=== PATIENT | male | born 1970 | race Caucasian/White ===

== ENCOUNTER 2017-08-21 17:10 | Emergency (ER) | payer OTHER ==
[2017-08-21 17:25] VITALS: BP 163/93; PULSE 73; RESP 18; TEMP 97.8; O2SAT 98
[2017-08-21] MEDS ORDERED: CENTCHW4 CHEW (18:21)
--- NOTE | 2017-08-21 18:39 | PD ---
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 47-year- old male with history of hypertension presents for evaluation of chest pain. Symptoms started 2 weeks ago. He describes it as an intermittent left-sided squeezing chest pain which does not radiate. Pain is primarily reproduced with running night but sometimes it comes on randomly. Symptoms have been persistent which prompted evaluation today. Currently not experiencing any chest pain. He has never had this problem before. Dorsalis occasional dyspnea as well. Denies cough, congestion, sore throat, fevers, chills, abdominal pain , nausea or vomiting, diaphoresis, leg swelling. No personal or family history of coronary artery disease. Denies any known history of hyperlipidemia, diabetes. He does not currently have a primary care physician. Denies tobacco use. No other complaints. PFSH Past Medical History Diminished Hearing: No Hypertension: Yes (NO MED) Tetanus Vaccination: > 5 Years Influenza Vaccination: No Past Surgical History Surgical History: No Previous Surgery Social History Alcohol Use: No Tobacco Use: No Substance Use: No Allergies-Medications (Allergen,Severity, Reaction): Coded Allergies: No Known Allergies (Unverified , 08/21/17) Reported Meds & Prescriptions Reported Meds & Active Scripts Active Reported Centrum (Multiple Vitamins W/ Minerals) 1 Chew 1 Tab CHEW DAILY Review of Systems Except as stated in HPI: all other systems reviewed are Neg Physical Exam Narrative GENERAL: Well-developed well-nourished male in no acute distress SKIN: Warm and dry. HEAD: Atraumatic. Normocephalic. EYES: Pupils equal and round. No scleral icterus. No injection or drainage. ENT: No nasal bleeding or discharge. Mucous membranes pink and moist. NECK: Trachea midline. No JVD. CARDIOVASCULAR: Regular rate and rhythm. No murmur appreciated. RESPIRATORY: No accessory muscle use. Clear to auscultation. Breath sounds equal bilaterally. GASTROINTESTINAL: Abdomen soft, non-tender, nondistended. Hepatic and splenic margins not palpable. MUSCULOSKELETAL: No obvious deformities. No clubbing. No cyanosis. No edema. NEUROLOGICAL: Awake and alert. No obvious cranial nerve deficits. Motor grossly within normal limits. Normal speech. PSYCHIATRIC: Appropriate mood and affect; insight and judgment normal. Data Data Last Documented VS Vital Signs Date Time Temp Pulse Resp B/P (MAP) Pulse Ox O2 Delivery O2 Flow Rate FiO2 08/21/17 18:47 98 Room Air 08/21/17 18:47 59 16 144/97 (113) 136/92 (107) 08/21/17 17:25 97.8 Orders Orders Electrocardiogram (08/21/17 18:35) Basic Metabolic Panel (Bmp) (08/21/17 18:35) Ckmb (Isoenzyme) Profile (08/21/17 18:35) Complete Blood Count With Diff (08/21/17 18:35) Magnesium (Mg) (08/21/17 18:35) Prothrombin Time / Inr (Pt) (08/21/17 18:35) Act Partial Throm Time (Ptt) (08/21/17 18:35) Troponin I (08/21/17 18:35) Chest, Single Ap (08/21/17 18:35) Ecg Monitoring (08/21/17 18:35) Bilateral Bp Monitoring (08/21/17 18:35) Iv Access Insert/Monitor (08/21/17 18:35) Oximetry (08/21/17 18:35) Oxygen Administration (08/21/17 18:35) Aspirin Chew (Aspirin Chew) (08/21/17 18:45) Sodium Chloride 0.9% Flush (Ns Flush) (08/21/17 18:45) CKMB (08/21/17 20:00) CKMB% (08/21/17 20:00) Labs Laboratory Tests Test 08/21/17 18:40 08/21/17 20:00 White Blood Count 7.4 TH/MM3 Red Blood Count 4.99 MIL/MM3 Hemoglobin 15.6 GM/DL Hematocrit 45.4 % Mean Corpuscular Volume 90.9 FL Mean Corpuscular Hemoglobin 31.2 PG Mean Corpuscular Hemoglobin Concent 34.3 % Red Cell Distribution Width 12.6 % Platelet Count 304 TH/MM3 Mean Platelet Volume 7.6 FL Neutrophils (%) (Auto) 50.5 % Lymphocytes (%) (Auto) 36.4 % Monocytes (%) (Auto) 7.8 % Eosinophils (%) (Auto) 4.3 % Basophils (%) (Auto) 1.0 % Neutrophils # (Auto) 3.7 TH/MM3 Lymphocytes # (Auto) 2.7 TH/MM3 Monocytes # (Auto) 0.6 TH/MM3 Eosinophils # (Auto) 0.3 TH/MM3 Basophils # (Auto) 0.1 TH/MM3 CBC Comment DIFF FINAL Differential Comment Blood Urea Nitrogen 12 MG/DL Creatinine 0.78 MG/DL Random Glucose 81 MG/DL Calcium Level 8.7 MG/DL Magnesium Level 2.4 MG/DL Sodium Level 140 MEQ/L Potassium Level 3.7 MEQ/L Chloride Level 108 MEQ/L Carbon Dioxide Level 27.8 MEQ/L Anion Gap 4 MEQ/L Estimat Glomerular Filtration Rate 106 ML/MIN Total Creatine Kinase 154 U/L Troponin I LESS THAN 0.02 NG/ML MDM Medical Decision Making Medical Screen Exam Complete: Yes Emergency Medical Condition: Yes Medical Record Reviewed: Yes Differential Diagnosis Angina, unstable angina, acute coronary syndrome, aortic dissection, pleurisy, costochondritis, pericarditis, myocarditis, spontaneous pneumothorax Narrative Course 47-year-old male with history of hypertension who has been expressing intermittent exertional left-sided chest pain for 2 weeks. The patient was placed on ECG monitored pulse oximetry. A 12-lead EKG was obtained revealing sinus rhythm with no acute ST elevation or depression or T-wave inversions. Plan is for lab work, chest x-ray. The patient was given a full dose aspirin. Initial lab work and imaging studies are reassuring. Initial cardiac enzymes are negative. Given his symptoms, it was recommended that he be admitted of the chest pain center for serial cardiac enzymes and rule out purposes however he is declining. He is leaving AMA. I discussed in great detail the purpose of these tests and the risks of leaving AMA and he verbalizes understanding. He understands that he can return at any time if he changes his mind and otherwise follow-up as soon as possible with primary care physician. AMA: The risks of leaving against medical advice without further evaluation treatment were discussed with the patient. These risks include cardiac dysfunction, cardiac dysrhythmia, possible heart attack, possible . The patient indicated understanding of these risks and appeared to have the capacity to make this decision. Procedures EKG Prior to Arrival: Yes Diagnosis Primary Impression: Chest pain Additional Impression: Left against medical advice Med/Other Pt SpecificInfo: No Change to Meds Disposition: 07 AGAINST MEDICAL ADVICE Condition: Stable Perico Borden Aug 21, 2017 18:39
[2017-08-21] MEDS ORDERED: SODIUM CHLORIDE 0.9% FLUSH 10 ML FLUSH IVF PRN (18:45)
[2017-08-21] MEDS ORDERED: ASPIRIN 81 MG CHEW TAB PO ONE (18:45)
[2017-08-21 18:47] VITALS: BP_SYST 136; BP_SYST 144; BP_DIAS 92; BP_DIAS 97; PULSE 59; RESP 16; O2SAT 98
[2017-08-21 18:55] LABS: AUTOMATED NEUTROPHIL # 3.7 TH/MM3 (1.8-7.7); BASOPHIL # 0.1 TH/MM3 (0-0.2); EOSINOPHIL # 0.3 TH/MM3 (0-0.4); EOSINOPHIL % 4.3 % (0.0-4.0); HEMATOCRIT 45.4 % (39.0-51.0); HEMOGLOBIN 15.6 GM/DL (13.0-17.0); LYMPH % 36.4 % (9.0-44.0); LYMPHOCYTE # 2.7 TH/MM3 (1.0-4.8); MEAN CELL VOLUME 90.9 FL (80.0-100.0); MEAN CORPUSCULAR HEMOGLOBIN 31.2 PG (27.0-34.0); MEAN CORPUSCULAR HGB CONC 34.3 % (32.0-36.0); MEAN PLATELET VOLUME 7.6 FL (7.0-11.0); MONO % 7.8 % (0.0-8.0); MONOCYTE # 0.6 TH/MM3 (0-0.9); NEUT % 50.5 % (16.0-70.0); PLATELET COUNT 304 TH/MM3 (150-450); RED BLOOD COUNT 4.99 MIL/MM3 (4.50-5.90); RED CELL DISTRIBUTION WIDTH 12.6 % (11.6-17.2); WHITE BLOOD COUNT 7.4 TH/MM3 (4.0-11.0)
--- NOTE | 2017-08-21 19:15 | RADRPT ---
EXAM DATE/TIME: 08/21/2017 19:01 [facility] COMPARISON: No previous studies available for comparison. INDICATIONS : Cough for 1 week. MEDICAL HISTORY : None. SURGICAL HISTORY : None. ENCOUNTER: Initial ACUITY: 1 week PAIN SCORE: 2/10 LOCATION: Bilateral chest FINDINGS: A single view of the chest demonstrates the lungs to be symmetrically aerated without evidence of mas s, infiltrate or effusion. The cardiomediastinal contours are unremarkable. Osseous structures are intact. CONCLUSION: No acute disease. Vaughn Berry MD on August 21, 2017 at 19:12 Board Certified Radiologist. This report was verified electronically.
[2017-08-21 20:19] LABS: CHLORIDE 108 MEQ/L (98-107); SODIUM (NA) 140 MEQ/L (136-145)
[2017-08-21 20:22] LABS: CALCIUM 8.7 MG/DL (8.5-10.1)
[2017-08-21 20:23] LABS: BICARBONATE 27.8 MEQ/L (21.0-32.0); BLOOD UREA NITROGEN 12 MG/DL (7-18); GLUCOSE,RANDOM 81 MG/DL (74-106); MAGNESIUM 2.4 MG/DL (1.5-2.5)
[2017-08-21 20:26] LABS: CREATININE 0.78 MG/DL (0.60-1.30); GLOMERULAR FILTRATION RATE 106 ML/MIN (>89)
[2017-08-21 20:31] LABS: TROPONIN I LESS THAN 0.02 NG/ML (0.02-0.05)
--- NOTE | 2017-08-22 09:29 | EKG ---
Date Performed: 08/21/2017 Time Performed: 17:31:06 PTAGE: 47 years EKG: Sinus rhythm EARLY REPOLARIZATION BORDERLINE ECG INTERPRETATION BASED ON A DEFAULT AGE OF 39 YEARS NO PREVIOUS TRACING DOCTOR: Rah Saunders Interpretating Date/Time 08/22/2017 09:27:04
== END 2017-08-21 20:58 | disposition left against medical advice (07) ==
LOC: PHED 17:10
DX: R07.9 Chest pain, unspecified (principal); I10 Essential (primary) hypertension
CPT/HCPCS: 71045; 80048; 82550; 82552; 83735; 84484; 85025; 85610; 85730; 93005; 99285

== ENCOUNTER 2017-09-07 16:49 | Observation (INO) | payer OTHER ==
[~2017-09-07 16:49] MED LIST: CENTCHW4 CHEW
[2017-09-07] MEDS ORDERED: IOHEXOL 350 MG/ML 10 ML VIAL (for RAD DIAG) IVCONTRAST ONE (16:50)
[2017-09-07 17:08] VITALS: BP 163/101; PULSE 76; RESP 16; O2SAT 98
[2017-09-07 17:26] LABS: AUTOMATED NEUTROPHIL # 4.7 TH/MM3 (1.8-7.7); BASOPHIL # 0.1 TH/MM3 (0-0.2); BASOPHIL % 0.8 % (0.0-2.0); EOSINOPHIL # 0.4 TH/MM3 (0-0.4); EOSINOPHIL % 4.1 % (0.0-4.0); HEMATOCRIT 46.6 % (39.0-51.0); HEMOGLOBIN 16.5 GM/DL (13.0-17.0); LYMPH % 37.4 % (9.0-44.0); LYMPHOCYTE # 3.5 TH/MM3 (1.0-4.8); MEAN CELL VOLUME 92.5 FL (80.0-100.0); MEAN CORPUSCULAR HEMOGLOBIN 32.7 PG (27.0-34.0); MEAN CORPUSCULAR HGB CONC 35.3 % (32.0-36.0); MEAN PLATELET VOLUME 7.6 FL (7.0-11.0); MONO % 7.7 % (0.0-8.0); MONOCYTE # 0.7 TH/MM3 (0-0.9); PLATELET COUNT 296 TH/MM3 (150-450); RED BLOOD COUNT 5.03 MIL/MM3 (4.50-5.90); RED CELL DISTRIBUTION WIDTH 12.3 % (11.6-17.2); WHITE BLOOD COUNT 9.4 TH/MM3 (4.0-11.0)
--- NOTE | 2017-09-07 17:35 | PD ---
HPI Chief Complaint: Pain: Acute or Chronic Time Seen by Provider: 17:08 Travel History International Travel<30 days: No Contact w/Intl Traveler<30days: No Traveled to known affect area: No History of Present Illness HPI 47-year-old male arrives to the ER with complaint of shortness of breath and chest pain for the past month. Today he developed dizziness, vertiginous in nature associated with difficulty concentrating. No weakness aphasia or ataxia reported. It started spontaneously. Of note the patient is Lithuanian speaking and translation was provided through our online service. The patient reports the chest pain is not pleuritic or exertional. It has a sharp quality. There is no radiation. Severity is 3-4/10. No cough or fever reported no similar prior episodes reported however review the records show that he was seen here about a month ago for chest pain left and AMA without undergoing chest pain center evaluation. He has no past medical history. He is not a smoker. He has no family history of coronary disease that he is aware of. PFSH Past Medical History Diminished Hearing: No Hypertension: Yes (NO MED) Tetanus Vaccination: Unknown Influenza Vaccination: No Past Surgical History Surgical History: No Previous Surgery Social History Alcohol Use: No Tobacco Use: No Substance Use: No Allergies-Medications (Allergen,Severity, Reaction): Coded Allergies: No Known Allergies (Unverified , 09/07/17) Reported Meds & Prescriptions Reported Meds & Active Scripts Active Reported Centrum (Multiple Vitamins W/ Minerals) 1 Chew 1 Tab CHEW DAILY Review of Systems Except as stated in HPI: all other systems reviewed are Neg General / Constitutional: No: Fever Physical Exam Narrative GENERAL: 47-year-old male pleasant no acute distress SKIN: Warm and dry. HEAD: Atraumatic. Normocephalic. EYES: Pupils equal and round. No scleral icterus. No injection or drainage. No nystagmus. ENT: No nasal bleeding or discharge. Mucous membranes pink and moist. NECK: Trachea midline. No JVD. CARDIOVASCULAR: Regular rate and rhythm. RESPIRATORY: No accessory muscle use. Clear to auscultation. Breath sounds equal bilaterally. GASTROINTESTINAL: Abdomen soft, non-tender, nondistended. Hepatic and splenic margins not palpable. MUSCULOSKELETAL: Extremities without clubbing, cyanosis, or edema. No obvious deformities. NEUROLOGICAL: Speech memory mentation are normal. The cranial nerves III through XII are normal. Cerebellar function is normal. Motor function is normal 4 extremities. PSYCHIATRIC: Appropriate mood and affect; insight and judgment normal. Data Data Last Documented VS Vital Signs Date Time Temp Pulse Resp B/P (MAP) Pulse Ox O2 Delivery O2 Flow Rate FiO2 09/07/17 18:37 66 16 141/99 (113) 97 Nasal Cannula 2.00 Orders Orders Electrocardiogram (09/07/17 16:57) Complete Blood Count With Diff (09/07/17 16:57) Basic Metabolic Panel (Bmp) (09/07/17 16:57) Ckmb (Isoenzyme) Profile (09/07/17 16:57) Troponin I (09/07/17 16:57) Chest, Single Ap (09/07/17 16:57) Iv Access Insert/Monitor (09/07/17 16:57) Ecg Monitoring (09/07/17 16:57) Oxygen Administration (09/07/17 16:57) Oximetry (09/07/17 16:57) Ct Pulmonary Angiogram (09/07/17 17:08) CKMB (09/07/17 17:00) CKMB% (09/07/17 17:00) Meclizine (Antivert) (09/07/17 19:00) Sodium Chlor 0.9% 1000 Ml Inj (Ns 1000 M (09/07/17 18:52) Iohexol 350 Inj (Omnipaque 350 Inj) (09/07/17 16:50) Labs Laboratory Tests Test 09/07/17 17:00 White Blood Count 9.4 TH/MM3 Red Blood Count 5.03 MIL/MM3 Hemoglobin 16.5 GM/DL Hematocrit 46.6 % Mean Corpuscular Volume 92.5 FL Mean Corpuscular Hemoglobin 32.7 PG Mean Corpuscular Hemoglobin Concent 35.3 % Red Cell Distribution Width 12.3 % Platelet Count 296 TH/MM3 Mean Platelet Volume 7.6 FL Neutrophils (%) (Auto) 50.0 % Lymphocytes (%) (Auto) 37.4 % Monocytes (%) (Auto) 7.7 % Eosinophils (%) (Auto) 4.1 % Basophils (%) (Auto) 0.8 % Neutrophils # (Auto) 4.7 TH/MM3 Lymphocytes # (Auto) 3.5 TH/MM3 Monocytes # (Auto) 0.7 TH/MM3 Eosinophils # (Auto) 0.4 TH/MM3 Basophils # (Auto) 0.1 TH/MM3 CBC Comment DIFF FINAL Differential Comment Blood Urea Nitrogen 10 MG/DL Creatinine 0.89 MG/DL Random Glucose 84 MG/DL Calcium Level 8.5 MG/DL Sodium Level 137 MEQ/L Potassium Level 4.4 MEQ/L Chloride Level 105 MEQ/L Carbon Dioxide Level 25.4 MEQ/L Anion Gap 7 MEQ/L Estimat Glomerular Filtration Rate 91 ML/MIN Total Creatine Kinase 201 U/L Creatine Kinase MB 1.1 NG/ML Troponin I LESS THAN 0.02 NG/ML MDM Medical Decision Making Medical Screen Exam Complete: Yes Emergency Medical Condition: Yes Medical Record Reviewed: Yes Differential Diagnosis NSTEMI, unstable angina, coronary vasospasm, PE, PTX, aortic dissection, pericarditis, myocarditis, endocarditis, PNA, esophageal disease, aneurysm, musculoskeletal etiologies, anxiety, cocaine/sympathomimetic abuse Narrative Course EKG shows sinus rhythm with a rate of 67 and no ischemic injury pattern CBC & BMP Diagram 09/07/17 17:00 Calcium Level 8.5 Last Impressions Chest X-Ray 09/07/17 1657 Signed Impressions: Service Date/Time: Thursday, September 07, 2017 17:18 - CONCLUSION: No acute cardiopulmonary process. MD Triston Garcia Daniel C. MD Sep 07, 2017 17:35
[2017-09-07 17:38] LABS: CHLORIDE 105 MEQ/L (98-107); SODIUM (NA) 137 MEQ/L (136-145)
[2017-09-07 17:41] LABS: CALCIUM 8.5 MG/DL (8.5-10.1)
[2017-09-07 17:42] LABS: BICARBONATE 25.4 MEQ/L (21.0-32.0); BLOOD UREA NITROGEN 10 MG/DL (7-18); GLUCOSE,RANDOM 84 MG/DL (74-106)
--- NOTE | 2017-09-07 17:43 | RADRPT ---
EXAM DATE/TIME: 09/07/2017 17:18 [facility] COMPARISON: CHEST SINGLE AP, August 21, 2017, 19:01. INDICATIONS : Chest pain. MEDICAL HISTORY : None. SURGICAL HISTORY : None. ENCOUNTER: Initial ACUITY: 1 day PAIN SCORE: 3/10 LOCATION: Bilateral chest FINDINGS: A single view of the chest demonstrates the lungs to be symmetrically aerated without evidence of mas s, infiltrate or effusion. The cardiomediastinal contours are unremarkable. Osseous structures are intact. CONCLUSION: No acute cardiopulmonary process. Demar Alexander MD on September 07, 2017 at 17:40 Board Certified Radiologist. This report was verified electronically.
[2017-09-07 17:45] LABS: CREATININE 0.89 MG/DL (0.60-1.30); GLOMERULAR FILTRATION RATE 91 ML/MIN (>89)
[2017-09-07 17:50] LABS: TROPONIN I LESS THAN 0.02 NG/ML (0.02-0.05)
[2017-09-07 18:37] VITALS: BP 141/99; PULSE 66; RESP 16; O2SAT 97
[2017-09-07] MEDS ORDERED: SODIUM CHLOR 0.9% 1000 ML INJ 1,000 ML IV ONE (18:52)
[2017-09-07] MEDS ORDERED: MECLIZINE HCL 25 MG TAB PO ONE (19:00)
--- NOTE | 2017-09-07 19:33 | RADRPT ---
EXAM DATE/TIME: 09/07/2017 18:54 [facility] COMPARISON: No previous studies available for comparison. INDICATIONS : Chest pain. IV CONTRAST: 75 cc Omnipaque 350 (iohexol) IV RADIATION DOSE: 6.69 CTDIvol (mGy) MEDICAL HISTORY : Hypertension. SURGICAL HISTORY : None. ENCOUNTER: Initial ACUITY: 1 day PAIN SCALE: 6/10 LOCATION: Bilateral chest TECHNIQUE: Volumetric scanning of the chest was performed using a pulmonary embolism protocol MIP images were re constructed. Using automated exposure control and adjustment of the mA and/or kV according to patien t size, radiation dose was kept as low as reasonably achievable to obtain optimal diagnostic quality images. DICOM format image data is available electronically for review and comparison. Follow-up recommendations for detected pulmonary nodules are based at a minimum on nodule size and pa tient risk factors according to Fleischner Society Guidelines. FINDINGS: PULMONARY ARTERIES: No filling defects are seen in the pulmonary arteries through the segmental level. LUNGS: There is no consolidation or pneumothorax . No concerning pulmonary nodule is visualized. PLEURAE: There is no pleural thickening or pleural effusion. MEDIASTINUM: There is good visualization of the great vessels of the middle mediastinum. No evidence of mediastin al or hilar adenopathy/mass. MUSCULOSKELETAL: Within normal limits for patient age. MISCELLANEOUS: The visualized upper abdominal organs demonstrate no acute abnormality. CONCLUSION: 1. Negative for pulmonary embolus. Minimal dependent atelectasis in the lungs. Bony Colorado MD on September 07, 2017 at 19:30 Board Certified Radiologist. This report was verified electronically.
--- NOTE | 2017-09-07 20:01 | PD ---
Physical Exam Time Seen by Provider: 19:[address] Goldstein with this patient with me to check the results of the CT angiogram and make a disposition, likely chest pain center. Data Data Last Documented VS Vital Signs Date Time Temp Pulse Resp B/P (MAP) Pulse Ox O2 Delivery O2 Flow Rate FiO2 09/07/17 18:37 66 16 141/99 (113) 97 Nasal Cannula 2.00 Orders Orders Electrocardiogram (09/07/17 16:57) Complete Blood Count With Diff (09/07/17 16:57) Basic Metabolic Panel (Bmp) (09/07/17 16:57) Ckmb (Isoenzyme) Profile (09/07/17 16:57) Troponin I (09/07/17 16:57) Chest, Single Ap (09/07/17 16:57) Iv Access Insert/Monitor (09/07/17 16:57) Ecg Monitoring (09/07/17 16:57) Oxygen Administration (09/07/17 16:57) Oximetry (09/07/17 16:57) Ct Pulmonary Angiogram (09/07/17 17:08) CKMB (09/07/17 17:00) CKMB% (09/07/17 17:00) Meclizine (Antivert) (09/07/17 19:00) Sodium Chlor 0.9% 1000 Ml Inj (Ns 1000 M (09/07/17 18:52) Iohexol 350 Inj (Omnipaque 350 Inj) (09/07/17 16:50) Activity Bed Rest With Brp (09/07/17 20:17) Vital Signs (Adult) Q4H (09/07/17 20:17) Cardiac Rhythm .As Directed (09/07/17 20:17) Notify Dr: Other .PRN (09/07/17 20:17) Notify Dr. Parameters (09/07/17 20:17) Resp Oxygen Nasal Cannula (09/07/17 ) Diet Heart Healthy (09/08/17 Breakfast) Ckmb (Isoenzyme) Profile (09/07/17 20:17) Ckmb (Isoenzyme) Profile (09/07/17 23:17) Troponin I (09/07/17 20:17) Troponin I (09/07/17 23:17) Electrocardiogram (09/07/17 20:17) Electrocardiogram (09/07/17 23:17) ^ Obtain (09/07/17 20:17) Sodium Chloride 0.9% Flush (Ns Flush) (09/07/17 20:30) Sodium Chloride 0.9% Flush (Ns Flush) (09/07/17 21:00) Acetaminophen (Tylenol) (09/07/17 20:30) Temazepam (Restoril) (09/07/17 20:30) Development Executive / Telemetry BREANN.Q8H (09/07/17 20:17) Labs Laboratory Tests Test 09/07/17 17:00 White Blood Count 9.4 TH/MM3 Red Blood Count 5.03 MIL/MM3 Hemoglobin 16.5 GM/DL Hematocrit 46.6 % Mean Corpuscular Volume 92.5 FL Mean Corpuscular Hemoglobin 32.7 PG Mean Corpuscular Hemoglobin Concent 35.3 % Red Cell Distribution Width 12.3 % Platelet Count 296 TH/MM3 Mean Platelet Volume 7.6 FL Neutrophils (%) (Auto) 50.0 % Lymphocytes (%) (Auto) 37.4 % Monocytes (%) (Auto) 7.7 % Eosinophils (%) (Auto) 4.1 % Basophils (%) (Auto) 0.8 % Neutrophils # (Auto) 4.7 TH/MM3 Lymphocytes # (Auto) 3.5 TH/MM3 Monocytes # (Auto) 0.7 TH/MM3 Eosinophils # (Auto) 0.4 TH/MM3 Basophils # (Auto) 0.1 TH/MM3 CBC Comment DIFF FINAL Differential Comment Blood Urea Nitrogen 10 MG/DL Creatinine 0.89 MG/DL Random Glucose 84 MG/DL Calcium Level 8.5 MG/DL Sodium Level 137 MEQ/L Potassium Level 4.4 MEQ/L Chloride Level 105 MEQ/L Carbon Dioxide Level 25.4 MEQ/L Anion Gap 7 MEQ/L Estimat Glomerular Filtration Rate 91 ML/MIN Total Creatine Kinase 201 U/L Creatine Kinase MB 1.1 NG/ML Troponin I LESS THAN 0.02 NG/ML [facility] Medical Record Reviewed: Yes Supervised Visit with TRIXIE: Yes Interpretation(s) The EKG is normal with normal sinus rhythm rate of 67. The CT pulmonary angiogram is negative for pulmonary embolus. The CBC is normal. The cardiac enzymes are normal and the basic metabolic profile is normal. Differential Diagnosis Chest pain etiology undetermined, acute coronary syndrome-unlikely, esophageal pain, chest wall pain, pleuritic pain, gastrointestinal pain, musculoskeletal pain, pulmonary embolus Narrative Course The patient has no evidence for any of the more serious causes of chest pain as listed above. He will be admitted to the chest pain center. He has never had a stress test. Physician Communication Physician Communication I discussed the patient with Dr. Parmar. Diagnosis Primary Impression: Chest pain of unknown etiology Admitting Information Admitting Physician Requests: Observation Jose Fletcher MD Sep 07, 2017 20:01
[2017-09-07] MEDS ORDERED: SODIUM CHLORIDE 0.9% FLUSH 10 ML FLUSH IV FLUSH PRN (20:30)
[2017-09-07] MEDS ORDERED: TEMAZEPAM 15 MG CAP PO PRN (20:30)
[2017-09-07] MEDS ORDERED: ACETAMINOPHEN 500 MG CPLT PO PRN (20:30)
[2017-09-07 22:06] VITALS: BP 141/93; PULSE 71; RESP 14; O2SAT 100
[2017-09-07 22:06] LABS: TROPONIN I LESS THAN 0.02 NG/ML (0.02-0.05)
[2017-09-07 22:26] VITALS: PULSE 64
[2017-09-07 22:59] VITALS: BP 141/93; PULSE 71; RESP 14; TEMP 98; O2SAT 100
[2017-09-07] MEDS: SODIUM CHLORIDE 0.9% FLUSH 10 ML FLUSH IV FLUSH SCH (23:03)
[2017-09-07 23:10] VITALS: O2SAT 99
[2017-09-08 00:10] LABS: TROPONIN I LESS THAN 0.02 NG/ML (0.02-0.05)
[2017-09-08 01:32] VITALS: BP 132/80; PULSE 58; RESP 16; TEMP 97.4; O2SAT 100
[2017-09-08 05:16] VITALS: BP 112/72; PULSE 76; RESP 16; TEMP 97.9; O2SAT 98
[2017-09-08 08:00] VITALS: BP 119/69; PULSE 64; RESP 16; TEMP 98.3; O2SAT 98
[2017-09-08 08:10] VITALS: O2SAT 99
--- NOTE | 2017-09-08 09:41 | HHI.HP ---
[facility] Primary [facility]ician No Primary Care Physician Admission Diagnosis chest pain unknown etiology Diagnoses: (1) Chest pain of unknown etiology Diagnosis: Principal Chief Complaint: Chest pain Travel History International Travel<30 Days: No Contact w/Intl Traveler <30 Da: No Traveled to Known Affected Are: No History of Present Illness 47-year-old male with history of untreated hypertension who presented to hospital because of chest discomfort. Patient does not speak much Welsh, translation was performed by son at bedside. Patient states that over the last 2 months he has been having intermittent chest discomfort approximately 1 time per month whenever he exerts himself, strenuous walking. He states that the pain is on the left side of his chest without any radiation to neck, back, shoulder, arm. It is associated with shortness of breath, lightheadedness, diaphoresis, dizziness. Denies any nausea, vomiting. He indicates that the pain is a crescendo type pain that usually last for proximal 1 minute and is a 4 /10 on a pain scale. Patient had previous workup done in emergency department on August 21, 2017, at that time he left out AGAINST MEDICAL ADVICE. Patient be presented to the ER with the chest pain again and is recommended patient be observed and chest pain center for further recommendations and management. Review of Systems Constitutional: COMPLAINS OF: Dizziness Respiratory: COMPLAINS OF: Shortness of breath Cardiovascular: COMPLAINS OF: Chest pain Except as stated in HPI: all other systems reviewed are Neg Past Family Social History Past Medical History Elevated blood pressure Past Surgical History No previous surgeries Reported Medications Reported Meds & Active Scripts Active Reported Centrum (Multiple Vitamins W/ Minerals) 1 Chew 1 Tab CHEW DAILY Allergies: Coded Allergies: No Known Allergies (Unverified , 09/07/17) Family History Reviewed is significant for mother with breast cancer, there is no indication of any heart disease, diabetes, seizures, stroke Social History Patient does drink alcohol approximately one time a week. He denies any tobacco or illicit drug Physical Exam Vital Signs Vital Signs Date Time Temp Pulse Resp B/P (MAP) Pulse Ox O2 Delivery O2 Flow Rate FiO2 09/08/17 08:10 99 Nasal Cannula 2.00 09/08/17 08:00 98.3 64 16 119/69 (86) 98 09/08/17 05:16 97.9 76 16 112/72 (85) 98 09/08/17 01:32 97.4 58 16 132/80 (97) 100 09/07/17 23:10 99 Nasal Cannula 2.00 09/07/17 22:59 98.0 71 14 141/93 (109) 100 09/07/17 22:26 64 09/07/17 22:06 71 14 141/93 (109) 100 Room Air 09/07/17 18:37 66 16 141/99 (113) 97 Nasal Cannula 2.00 09/07/17 17:10 Nasal Cannula 2.00 09/07/17 17:08 76 16 163/101 (121) 98 Physical Exam GENERAL: Well-developed, well-nourished, in no acute distress. alert and orientated HEENT: Head is normocephalic without any lesions or masses noted. Facial features are symmetric. Eyes: Pupils equal round reactive to light. Extraocular muscles are intact. Conjunctivae were clear. Oropharyngeal: Pharynx without any erythema edema. Tongue is midline without deviation. Buccal mucosa is moist without any masses or lesions NECK: Supple without any masses. Trachea midline no deviation. No JVD, no bruits are appreciated CARDIAC: Regular rhythm, regular rate. S1/S2 are heard. No murmurs gallops or rubs. LUNGS: Clear to auscultation bilaterally. No wheeze, rhonchi or rales. No use of accessory muscles on inspiration or expiration. ABDOMEN: Soft, nontender. Nondistended. Bowel sounds heard in all 4 quadrants. No organomegaly or masses. Negative rebound, negative guarding EXTREMITIES: No edema, pulses are equal bilaterally. No cyanosis or clubbing NEUROLOGY: Mood and affect appear appropriate. Cranial nerves II through XII grossly intact. Muscle strength 5/5 in upper and lower extremities bilaterally. Deep tendon reflexes are 2+ in upper and lower extremities bilaterally. Laboratory Laboratory Tests Test 09/07/17 17:00 09/07/17 21:38 09/07/17 23:38 White Blood Count 9.4 Red Blood Count 5.03 Hemoglobin 16.5 Hematocrit 46.6 Mean Corpuscular Volume 92.5 Mean Corpuscular Hemoglobin 32.7 Mean Corpuscular Hemoglobin Concent 35.3 Red Cell Distribution Width 12.3 Platelet Count 296 Mean Platelet Volume 7.6 Neutrophils (%) (Auto) 50.0 Lymphocytes (%) (Auto) 37.4 Monocytes (%) (Auto) 7.7 Eosinophils (%) (Auto) 4.1 Basophils (%) (Auto) 0.8 Neutrophils # (Auto) 4.7 Lymphocytes # (Auto) 3.5 Monocytes # (Auto) 0.7 Eosinophils # (Auto) 0.4 Basophils # (Auto) 0.1 CBC Comment DIFF FINAL Differential Comment Blood Urea Nitrogen 10 Creatinine 0.89 Random Glucose 84 Calcium Level 8.5 Sodium Level 137 Potassium Level 4.4 Chloride Level 105 Carbon Dioxide Level 25.4 Anion Gap 7 Estimat Glomerular Filtration Rate 91 Total Creatine Kinase 201 142 124 Creatine Kinase MB 1.1 0.9 Troponin I LESS THAN 0.02 LESS THAN 0.02 LESS THAN 0.02 Result Diagram: 09/07/17 17009/07/[address] Angiography 09/07/[id number] Signed Impressions: Service Date/Time: Thursday, September 07, 2017 18:54 - CONCLUSION: 1. Negative for pulmonary embolus. Minimal dependent atelectasis in the lungs. Bony Colorado MD Chest X-Ray [id number]/07/[id number] Signed Impressions: Service Date/Time: Thursday, September 07, 2017 17:18 - CONCLUSION: No acute cardiopulmonary process. MD Lara Garcia VTE Risk Assessment Caprini VTE Risk Assessment: No/Low Risk (score <= 1) Caprini Risk Assessment Model Point Value = 1 Point Value = 2 Point Value = 3 Point Value = 5 Age 41-60 Minor surgery BMI > 25 kg/m2 Swollen legs Varicose veins or History of unexplained or recurrent spontaneous Oral contraceptives or hormone replacement Sepsis (< 1 month) Serious lung disease, including pneumonia (< 1 month) Abnormal pulmonary function Acute myocardial infarction Congestive heart failure (< 1 month) History of inflammatory bowel disease Medical patient at bed rest Age 61-74 Arthroscopic surgery Major open surgery (> 45 min) Laparoscopic surgery (> 45 min) Malignancy Confined to bed (> 72 hours) Immobilizing plaster cast Central venous access Age >= 75 History of VTE Family history of VTE Factor V Leiden Prothrombin [id number] Lupus anticoagulant Anticardiolipin antibodies Elevated serum homocysteine Heparin-induced thrombocytopenia Other congenital or acquired thrombophilia Stroke (< 1 month) Elective arthroplasty Hip, pelvis, or leg fracture Acute spinal cord injury (< 1 month) Prophylaxis Regimen Total Risk Factor Score Risk Level Prophylaxis Regimen 0-1 Low Early ambulation 2 Moderate Order ONE of the following: *Sequential Compression Device (SCD) *Heparin 5000 units SQ BID 3-4 Higher Order ONE of the following medications: *Heparin 5000 units SQ TID *Enoxaparin/Lovenox 40 mg SQ daily (WT < 150 kg, CrCl > 30 mL/min) *Enoxaparin/Lovenox 30 mg SQ daily (WT < 150 kg, CrCl > 10-29 mL/min) *Enoxaparin/Lovenox 30 mg SQ BID (WT < 150 kg, CrCl > 30 mL/min) AND/OR *Sequential Compression Device (SCD) 5 or more Highest Order ONE of the following medications: *Heparin 5000 units SQ TID (Preferred with Epidurals) *Enoxaparin/Lovenox 40 mg SQ daily (WT < 150 kg, CrCl > 30 mL/min) *Enoxaparin/Lovenox 30 mg SQ daily (WT < 150 kg, CrCl > 10-29 mL/min) *Enoxaparin/Lovenox 30 mg SQ BID (WT < 150 kg, CrCl > 30 mL/min) AND *Sequential Compression Device (SCD) Assessment and Plan Assessment and Plan Chest pain, Patient is without any significant risk factors, however patient was expressing chest pain with exercise, shortness of breath, dizziness, lightheadedness. Serial cardiac enzymes were performed which were negative and ruled out any acute coronary event Serial EKGs were performed and reviewed by myself which does not indicate any changes or acute abnormality Exercise stress test was performed which did not indicate any underlying ischemia Elevated blood pressure Blood pressure is improved at this time Recommended outpatient follow-up and management by primary medical doctor DVT prevention Low risk, early ambulation Discharge disposition Discharge home in stable condition Activity: Ad samir. Diet: Regular diet Medications per medication reconciliation Follow-up primary medical doctor in one week Discussed Condition With Nursing staff, Dr. Dang, patient, kady FletcherLuiz Sep 08, 2017 09:41
[2017-09-08] MEDS: SODIUM CHLORIDE 0.9% FLUSH 10 ML FLUSH IV FLUSH SCH (11:02)
[2017-09-08 12:00] VITALS: BP 135/77; PULSE 89; RESP 18; TEMP 97.6; O2SAT 97
--- NOTE | 2017-09-08 12:01 | HHI.DCPOC ---
Discharge Care Plan Diagnosis: (1) Chest pain of unknown etiology Goals to Promote Your Health * To prevent worsening of your condition and complications * To maintain your health at the optimal level Directions to Meet Your Goals Take your medications as prescribed Follow your dietary instruction Follow activity as directed Keep your appointments as scheduled Take your immunizations and boosters as scheduled If your symptoms worsen call your PCP, if no PCP go to Urgent Care Center or Emergency Room Smoking is Dangerous to Your Health. Avoid second hand smoke Call the 24-hour hour crisis hotline for domestic abuse at Luiz Fletcher Sep 08, 2017 12:01
--- NOTE | 2017-09-08 14:27 | TR ---
Date Performed: 09/08/2017 Time Performed: 11:25:12 DOCTOR: Lorenzo Townsend DRUG LIST: CLINICAL HISTORY: CHEST PAIN REASON FOR TEST: ETT REASON FOR ENDING: Completed Protocol OBSERVATION: Arrhythmia: None Chest Pain: None CONCLUSION: Patient tolerated KAREN protocol with Total Exercise Time=7:13 Maximum ON=403 % Max HR Achieved=93.0% Maximum XF=298/82. Patient was asymptomatic troughout entire test, Testing stopped secondary to goals acheived. Patient reached Target HR. During peak exercise, patient had quick upslo ing ST segments. No significant ST depressions. HR and BP appropriate response to exercise. Recovery period, HR and BP returned to baseline COMMENTS: Conclusion: Normal treadmill exercise. No evidence of ischemia.
--- NOTE | 2017-09-08 14:44 | EKG ---
Date Performed: 09/07/2017 Time Performed: 16:55:25 PTAGE: 47 years EKG: Sinus rhythm NORMAL ECG Since PREVIOUS TRACING , no significant change noted PREVIOUS TRACIN08/21/2017 17.31.06 DOCTOR: Kosta Stoner Interpretating Date/Time 09/08/2017 14:43:53
--- NOTE | 2017-09-08 14:45 | EKG ---
Date Performed: 09/07/2017 Time Performed: 22:53:36 PTAGE: 47 years EKG: Sinus rhythm NORMAL ECG Since PREVIOUS TRACING , no significant change noted PREVIOUS TRACIN09/07/2017 20.27 DOCTOR: Kosta Stoner Interpretating Date/Time 09/08/2017 14:44:14
--- NOTE | 2017-09-08 14:45 | EKG ---
Date Performed: 09/07/2017 Time Performed: 20:27:38 PTAGE: 47 years EKG: Sinus rhythm NORMAL ECG Since PREVIOUS TRACING , no significant change noted PREVIOUS TRACIN08/21/2017 17.31 DOCTOR: Kosta Stoner Interpretating Date/Time 09/08/2017 14:44:04
== END 2017-09-08 13:11 | disposition home or self-care (01) ==
LOC: PHED 16:49 → PHEDA 20:22 → PH3A 22:19
PROVIDERS: ADMIT Hospitalist; ATTEND Hospitalist
DX: R07.89 Other chest pain (principal); R06.02 Shortness of breath; R42 Dizziness and giddiness; R61 Generalized hyperhidrosis; I10 Essential (primary) hypertension
CPT/HCPCS: 71045; 71275; 80048; 82550; 82552; 84484; 85025; 93005; 93017; 96360; 99285; G0378; J7030; Q9967